=== PATIENT | male | born 1985 | race Caucasian/White ===

== ENCOUNTER 2022-06-16 07:58 | Emergency (ER) | payer OTHER, SELFPAY ==
--- NOTE | ~2022-06-16 | XR_ITS ---
XR shoulder LT min 2V DATE: 06/16/2022 08:22 INDICATION: Fall. Left shoulder pain. TECHNIQUE: 4 views COMPARISON: None FINDINGS: Normal alignment at the acromioclavicular and glenohumeral joints. No fracture or dislocati on, periosteal reaction or bone destruction or abnormal soft tissue calcification. IMPRESSION: Negative Reviewed, dictated and finalized at location B. SACTION PROCESSOR IMPRESSION: Negative
--- NOTE | ~2022-06-16 | XR_ITS ---
XR clavicle LT DATE: INDICATION: Fall. Left clavicle pain TECHNIQUE: AP and angled AP views of left clavicle COMPARISON: 06/16/2022 left shoulder FINDINGS: No fracture or dislocation, periosteal reaction or bone destruction of the left clavicle. N ormal alignment at the sternoclavicular, acromioclavicular and glenohumeral joints. IMPRESSION: Negative Reviewed, dictated and finalized at location B. RVISOR OF OPERATIONS IMPRESSION: Negative
[2022-06-16 08:06] VITALS: BP 154/107; PULSE 80; RESP 16; TEMP 36.7; O2SAT 100
--- NOTE | 2022-06-16 08:49 | ED_ITS ---
HPI - Extremity Injury (Upper) General Chief Complaint: Extremity Injury, Upper Stated Complaint: fell down stairs, pain to left shoulder Time Seen by Provider: 06/16/22 08:30 History of Present Illness HPI narrative: Pt fell down staris and landed on left shoulder. Pt complains of pain in left sholder and lateral neck but no t midline neck. Pt denies LOC or TAVERA or head injury. Pt able to abduct shoulder to 90 degrees but says he feels pops and cracks when he does. Pt denies other injury. Related Data Allergies Allergy/AdvReac Type Severity Reaction Status Date / Time No Known Allergies Allergy Unknown Verified 06/16/22 08:09 Review of Systems Review of Systems: All systems reviewed & are unremarkable except as noted in HPI and below Exam Const: General: healthy appearing Nutritional Appearance: well nourished Orientation/consciousness: patient oriented x3 Limitations: no limitations HENMT: Head: normal to inspection Eyes: Conjunctivae: conjunctivae normal EOM: EOMs intact bilaterally Neck: Neck: normal visual inspection Other: no midline pain Chest: Chest palpation & inspection: normal inspection of the chest Resp: Effort & Inspection: normal respiratory effort Auscultation: clear to auscultation bilaterally Cardio: Rate: regular rate Rhythm: regular rhythm GI: GI Palp: Yes Soft to palpation Back/Spine/Pelvis: Other: no midline pain to spine Skin: General skin exam: normal color Wounds: no wounds Neuro: General: patient oriented x3, moves all extremities and no focal motor deficits Speech: normal speech Extrem: Other: tender over mid and distal clavicle and ac joint on left without obvious deformity. tender over deltoids as well. Pt able to abduct left shoulder to 90 degrees without much difficulty. Psych: Mental Status: mental status grossly normal Affect: normal affect Attitude: cooperative Course Vital Signs Vital signs: Vital Signs Temperature 98.0 F 06/16/22 08:06 Pulse Rate 80 06/16/22 08:06 Respiratory Rate 16 06/16/22 08:06 Blood Pressure 154/107 H 06/16/22 08:06 Pulse Oximetry 100 06/16/22 08:06 Oxygen Delivery Room Air 06/16/22 08:06 Temperature 98.0 F 06/16/22 08:06 Pulse Rate 80 06/16/22 08:06 Respiratory Rate 16 06/16/22 08:06 Blood Pressure 154/107 H 06/16/22 08:06 Pulse Oximetry 100 06/16/22 08:06 Oxygen Delivery Room Air 06/16/22 08:06 Discharge Plan Discharge Clinical Impression: Sprain of left shoulder Patient Disposition: Home, Self-Care Condition: Stable Instructions: Antibiotic Form, Shoulder Sprain (ED) Prescriptions: New naproxen [Naprosyn] 500 mg tablet 500 mg PO BID Qty: 20 0RF cyclobenzaprine 10 mg tablet 10 mg PO TID Qty: 14 0RF Follow-up/Referrals: Randolph Carrion MD [Physician] - PHYSICIAN,EARTH SCIENCE PROFESSOR [Primary Care Provider] - Stand Alone Forms: Work/School Release IP
== END 2022-06-16 09:32 | disposition home or self-care (01) ==
PROVIDERS: Emergency Provider Emergency Medicine
DX: S43.402A Unspecified sprain of left shoulder joint, initial encounter (principal); W10.9XXA Fall (on) (from) unspecified stairs and steps, initial encounter
CPT/HCPCS: 73000; 73030; 99283; A4565

== ENCOUNTER 2022-10-03 00:28 | Day surgery (SDC) | payer OTHER, SELFPAY ==
[2022-09-22 15:19] VITALS: BMI 26.6
--- NOTE | 2022-09-22 15:30 | PC.NURSE ---
Report to the Outpatient Waiting Room, entrance under the green pavilion located off [facility], at 0600 on 10/03/22. Planned Procedure Time: 0730. Time changes happen often and if your time is changed the preop area will call you the afternoon before. - You and your visitor will be asked to self-screen and do not enter if you have any COVID symptoms. - Only one visitor is requested with a max of two and NO children visitors are allowed at this time. - The patient visitor may be requested to leave or wait in car when not with patient due to distancing restrictions. - A mask is optional within the hospital at this time. Patients may have clear liquids (water, carbonated beverages, clear teas, apple juice) until 3 hours prior to surgery with a maximum of 20 ounces. - No food from midnight until time of surgery Take the following medications with a SIP of water the morning of surgery: N/A DO NOT STOP ANY OF YOUR OTHER PRESCRIPTION MEDICATIONS PRIOR TO SURGERY ?EXCEPT THE FOLLOWING Medications to discontinue per physician ___N/A Date to take last dose_N/A Please no make-up, nail vietnamese, hairspray, perfume, deodorant, or body powder the day of surgery. No jewelry (including any body piercings) or valuables the day of surgery, leave them at home. Please take a shower or bath the night before, or the morning of, surgery with an antibacterial soap. Wear comfortable, loose fitting clothing. - Jewelry must be removed prior to entering the operating room. Rings and piercings that are not removed may be cut off. - The hospital will not accept responsibility for valuables. - Please leave all valuables, including medications, at home the day of surgery. If you are going home after surgery, a licensed truck driver heavy must drive you home. - NO public transportation without another adult if you receive anesthesia. - We recommend that an adult stay with you for 24 hours following discharge. - We also recommend that you do not drive, make important decision, drink alcoholic beverages, or take any drugs that were not prescribed by your health care provider for at least 24 hours after your discharge time. Follow any additional instructions given to you from your surgeon. If you or anyone in your household have experienced Covid symptoms in the past week, please notify your surgeon or the nurse liaison at the phone number below for possible testing. Telephone instructions given to patient and asked if any additional questions and then verbalized understanding. Patient advised to call surgeon office or pre surgery nurse liaison [phone] if any additional questions.
--- NOTE | 2022-09-26 15:57 | PM.IMHP ---
H&P: HPI History of Present Illness Date/Time: 09/26/22 15:57 Chief Complaint: the patient is a 37 year old male who sees Dr. Hess regarding his left shoulder. The patient is a chronic ongoing history of pain localized left shoulder worse with activity somewhat relieved by rest the pain radiates into the left upper arm from the shoulder has aching pain with almost any motion particularly with overhead motion or heavy repetitive activity. The patient does report a couple of injuries including falls. X-rays and MRI scans were done these show AC joint arthrosis no evidence of a full-thickness rotator cuff tendon tear. There is mild thickening and signal abnormality of the supraspinatus tendon anteriorly there is some thickening of the inferior glenohumeral ligament biceps labrum is intact. Long head of the biceps tendon is also intact and in the bicipital groove. Subacromial space is well maintained. The patient continues have significant aching pain and limitation of his daily activities. An injection into the AC joint and subacromial space did give him some temporary relief indicating that the pain is localized to these areas. At this point the patient is tired living with it he has discussed further treatment options in detail Dr. Hess he would now like to proceed with surgical intervention. Review of Systems Review of Systems: Ten point review of systems otherwise negative PMFSH Social History Social History Smoking status: Current every day smoker Tobacco type: smokeless tobacco Smokeless tobacco user: chewing tobacco Additional smoking assessment comments: SINCE LATE TEENS Alcohol intake: current Alcohol use details: ONE BEER RARELY Substance use: never Living arrangements: with family Spiritual care concerns: No Meds Home Medications and Allergies Home Medications Medication Instructions Recorded Confirmed Type No Home Medications 09/22/22 09/22/22 History Allergies Allergy/AdvReac Type Severity Reaction Status Date / Time No Known Allergies Allergy Unknown Verified 09/22/22 15:16 Exam Narrative: on exam the patient is noted to be well-developed well-nourished male no acute distress alert oriented x3. Normal mood and affect. He is 5 ft 7 in tall 170 lb with a BMI 26.6. Hearing and vision are intact. Respiratory is good no distress. Pulse regular rate rhythm. Abdomen benign. Extremities showed the patient's left shoulder to be painful with manipulation and range of motion he has some tenderness over the AC joint and a positive impingement sign rotator cuff strength testing is 5/5 but did reproduce significant pain and discomfort as well he has full active and passive motion no radiculopathy with neck range of motion. Skin is intact without rashes or lesions. Central nervous system within normal limits. 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 The patient has discussed risks benefits limitations and alternatives of surgery in great detail Dr. Hess he is now ready to proceed with left shoulder arthroscopy acromioplasty open distal clavicle excision possible rotator cuff tendon Edilma mint / repair proceed as indicated. The patient is scheduled to undergo surgery 10/03/2022 at [facility] with Dr. Hess. The patient voiced understanding agrees with above plan.
[2022-10-03] VITALS (9 sets, daily range): BP systolic 109–132; BP diastolic 64–96; PULSE 64–91; RESP 10–16; TEMP 36.1–36.6; O2SAT 94–100
--- NOTE | 2022-10-03 06:41 | WPDHPUPDATE1 ---
History and Physical Update Update Date/Time: 10/03/22 06:41 History and Physical has been reviewed, including an updated exam of the patient. There are NO changes in the patient's condition. Risks, benefits, and alternatives have been discussed and questions answered. Patient agrees to proceed with procedure. Discussed fact that not all of his pain is from his shoulder. He has cervical issues as well.
[2022-10-03] MEDS: ACETAMINOPHEN 500 MG TABLET 1000 MG PO (07:00)
[2022-10-03] MEDS: LACTATED RINGERS 1,000 ML 30 ML IV CONT ×2 (07:00→09:08)
[2022-10-03] MEDS: KETOROLAC 15 MG/ML VIAL (*BKC) IV PUSH (07:00)
--- NOTE | 2022-10-03 07:14 | P.PNAN_ITS ---
Anes - Initial Pre Proc Eval Procedure: Operation Date: 10/03/22 07:30 Proposed Procedures p Left Shoulder Arthroscopy, Acromioplasty, Open Distal Clavicle Excision, Rotator Cuff Repair, Proceed As Indicated - Laurent Hess MD Date/Time: 10/03/22 07:14 Surgeon: Laurent Hess MD Pre Op Diagnosis: rotator cuff tear left shoulder Patient Data Age: 37 Gender: M Height: 1.7 m Weight: 77.11 kg Allergies Allergy/AdvReac Type Severity Reaction Status Date / Time No Known Allergies Allergy Unknown Verified 09/22/22 15:16 Home Medications Medication Instructions Recorded Confirmed Type No Home Medications 09/22/22 09/22/22 History Patient hx anesthesia problems: none Family hx anesthesia problems: none Results Review: All pre-operative results and documents have been reviewed as part of the pre- operative evaluation. [facility] Social History Social History Smoking status: Current every day smoker Tobacco type: smokeless tobacco Smokeless tobacco user: chewing tobacco Additional smoking assessment comments: SINCE LATE TEENS Alcohol intake: current Alcohol use details: ONE BEER RARELY Substance use: never Living arrangements: with family Spiritual care concerns: No Anes - Eval Final PreProcedure Day of Procedure 10/03/22 07:14 Patient weight: overweight Heart: regular rate and rhythm Lungs: clear to auscultation Airway: Mallampati scale class II Neurological: alert and oriented Last oral intake: >/= 8 hours ASA classification: II Emergent: no Anesthetic plan: proceed Anesthesia type and monitoring: general ETT and standard monitoring Results Review: All pre-operative results and documents have been reviewed as part of the pre- operative evaluation. Informed Consent: The patient's anesthetic plan and its attendant risks and benefits were discussed with the patient/family/POA. Questions were solicited and answers provided to the satisfaction of the patient/family/POA.
[2022-10-03] MEDS: ceFAZolin 2 GM/D5W 50 ML 2 GM/50 ML BAG IVPB (07:38)
[2022-10-03] MEDS: LIDO 1%/EPINEPHRINE 1:100,000 20 ML VIAL 10 ML INFILTRATE (08:23)
--- NOTE | 2022-10-03 08:52 | P.OP_ITS ---
Procedure Note - Detailed Date of Procedure 10/03/22 Pre-op Diagnosis Chronic Impingement Acromial clavicular arthrosis Post-op Diagnosis Same Procedure Performed Arthrocopic acromioplasty, distal clavicle excision Surgeon Laurent Hess MD Anesthesia General Indications Chronic pain unresponsive to conservative treatment Description of Procedure Patient brought to the operative 7. A general anesthetic was administered placed in the beach chair position the left shoulder exposed.? After sterile prep and drape standard posterior and lateral portals were used for arthroscopy. The joint itself looked reasonably good, the biceps tendon was intact.? The stout bacromial space had an intense bursa, this was debrided with a shaver and acromioplasty performed arthroscopically.? He was quite tight initially. I then proceeded to open the shoulder. A longitudinal incision made from the AC joint distalward over the shoulder.? Dissection carried down to the fascia. The fascia overlying the acromioclavicular joint was split. The AC joint found and a distal clavicle excision performed removing 3 to 4 millimeters of bone.? The edges beveled.? The deltoid was then split from the tip of the acromion. The remainder of the bursa was debrided.? The rotator cuff had some fraying, but no tear. This was debrided.? The acromium rasped gently. At this point the deltoid was repaired to itself,the acromion and the trapezius #2 Ethibond. The skin was closed with 2-0 Vicryl and robby.? Sterile dressing applied patient tolerated well left the operating room satisfactory condition. Estimated Blood Loss 50 Drains No Packing No Pathology None sent Complications No immediate complications Condition Stable Disposition PACU
== END 2022-10-03 11:00 | disposition home or self-care (01) ==
PROVIDERS: Visit Provider Orthopaedic Surgery
PROC: (CPT 29805; principal; 2022-10-03 07:30)
DX: M75.42 Impingement syndrome of left shoulder (principal); M19.012 Primary osteoarthritis, left shoulder; F17.220 Nicotine dependence, chewing tobacco, uncomplicated
CPT/HCPCS: 29822; 23120; A4565; A9270; J0330; J0690; J1100; J1885; J2250; J2270; J2405; J2704; J3010; J7120

== ENCOUNTER 2022-11-05 09:37 | Day surgery (SDC) | payer OTHER, SELFPAY ==
[2022-11-05] VITALS (10 sets, daily range): BP systolic 119–162; BP diastolic 73–107; PULSE 72–111; RESP 10–20; TEMP 36.2–36.6; O2SAT 98–100
--- NOTE | ~2022-11-05 | CT_ITS ---
EXAMINATION: CT abdomen pelvis w con DATE: 11/05/2022 12:36 INDICATION: Epigastric pain TECHNIQUE: Computed tomography (CT) of the abdomen and pelvis was performed with 100 mL Omnipaque-350 intravenous contrast. Automated exposure control and iterative reconstruction technique were employe d. The dose-length product was 477.49 mGy-cm. COMPARISON: None FINDINGS: Mild dependent atelectasis in the bilateral lower lobes. Heart size is normal. No pericardial or pleu ral effusion. Small amount of pericholecystic edema at the gallbladder fossa between the nondilated g allbladder and the liver. There is a 2.6 cm rim calcified gallstone position at the neck of the gallb ladder. Liver, spleen, pancreas, bilateral adrenal glands and kidneys are normal. Bowels including th e appendix are normal. Bladder is normal. No free intraperitoneal gas or fluid. No pathologically enl arged abdominal or pelvic lymphadenopathy. Mild thoracolumbar dextrocurvature. IMPRESSION: 1. Gallstone at the neck the nondilated gallbladder with small amount pericholecystic fluid/edema whi ch raises suspicion for early acute cholecystitis. Reviewed, dictated and finalized at location A. IMPRESSION: 1. Gallstone at the neck the nondilated gallbladder with small amount perichole cystic fluid/edema which raises suspicion for early acute cholecystitis.
[2022-11-05] MEDS: ONDANSETRON INJ 4 MG/2 ML VIAL IV PUSH (10:51)
[2022-11-05] MEDS: MORPHINE SULFATE (*CRX) 4 MG/ML INJ IV PUSH (10:52)
[2022-11-05] MEDS: SODIUM CHLORIDE 0.9% IV 1,000 ML 999 ML IV CONT (10:53)
[2022-11-05 11:07] LABS: Basophils Absolute Auto 0.1 K/mm3 (0.0-0.1); Basophils Percent Auto 0.5 % (0.2-1.2); Eosinophils Absolute Auto 0.1 K/mm3 (0-0.3); Eosinophils Percent Auto 0.6 % (0-4.4); Hematocrit 48.2 % (42.0-52.0); Hemoglobin 17.2 g/dL (14.0-18.0); Immature Granulocyte Absolute 0.08 K/mm3 (0.00-0.031); Immature Granulocyte Percent A 0.5 % (0-0.5); Lymphocytes Absolute Auto 1.45 K/mm3 (0.9-3.2); Lymphocytes Percent Auto 9.7 % (18.3-44.2); Mean Corpuscular HGB Conc 35.7 g/dl (32-36); Mean Corpuscular Hemoglobin 29.9 pg (26-34); Mean Corpuscular Volume 83.7 fl (80-100); Mean Platelet Volume 10.1 fl (7.4-10.4); Monocytes Absolute Auto 0.7 K/mm3 (0.1-0.6); Monocytes Percent Auto 4.4 % (2.6-8.5); Neutrophils Absolute Auto 12.5 K/mm3 (1.3-6.7); Neutrophils Percent Auto 84.3 % (45.5-73.1); Platelet Count Result 315 k/mm3 (150-375); Red Blood Count 5.76 M/mm3 (4.6-6.20); Red Cell Distribution Width 12.7 % (11.5-14.5); White Blood Count 14.9 K/mm3 (4.5-10.0)
[2022-11-05 11:13] LABS: Alanine Aminotransferase 70 U/L (6-50); Albumin Level 5.2 g/dL (3.5-5.1); Alkaline Phosphatase 83 U/L (38-126); Anion Gap 7 mmol/L (8-16); Aspartate Amino Transferase 42 U/L (17-59); Bilirubin,Total 0.6 mg/dL (0.2-1.3); Blood Urea Nitrogen 13 mg/dL (9-20); Calcium 10.5 mg/dL (8.4-10.2); Carbon Dioxide 30 mmol/L (22-30); Chloride 100 mmol/L (98-107); Estimated CRCL calculation 83 ml/min; Estimated Glomerular Filt Rate > 60; Glucose 125 mg/dL (65-110); Lipase 37 U/L (23-300); Potassium 5.2 mmol/L (3.4-5.0); Sodium 137 mmol/L (137-145)
[2022-11-05 11:25] LABS: Appearance Urine Clear (Clear); Bacteria Urine None Seen /hpf; Bilirubin Urine Negative (Negative); Blood Urine Negative (Negative); Color Urine Yellow (Yellow); Glucose Urine UA Negative (Negative); Ketones Urine Negative (Negative); Leukocyte Esterase Ur Negative LEU/UL (Negative); Nitrate Urine Negative (Negative); Non Pathogenic Casts 0-2; Protein Urine Trace mg/dL (Negative); RBC Urine 0-2 /hpf (0-2); Specific Grav Ur 1.021 (1.001-1.035); Squamous Epithelial Cell Urine None seen /hpf (Few); Urobilinogen Urine 0.2 mg/dL (<2.0); WBC Urine 0-5 /hpf
[2022-11-05 11:31] LABS: Add Urine Microscopic? YES
[2022-11-05] MEDS: HYDROmorphone HCL INJ (*CRX) 1 MG/ML SYR 0.5 MG IV PUSH (12:49)
--- NOTE | 2022-11-05 12:50 | ED.NAVMDI ---
HPI - Nausea/Vomiting/Diarrhea General Chief complaint: Nausea/Vomiting/Diarrhea Stated complaint: abd pain Time Seen by Provider: 11/05/22 10:11 History of Present Illness HPI Narrative: Patient is a 37-year-old male who presents ER with epigastric pain. Sharp and sudden onset at 1 AM. Some nausea without vomiting. No fevers or chills or sweats. No diarrhea. No alleviating factors. Cannot identify aggravating factors. Related Data Home Medications Medication Instructions Recorded Confirmed No Home Medications 11/05/22 11/05/22 Allergies Allergy/AdvReac Type Severity Reaction Status Date / Time No Known Allergies Allergy Unknown Verified 11/05/22 10:18 Review of Systems Review of Systems: All systems reviewed & are unremarkable except as noted in HPI and below Constitutional: Constitutional: Denies chills, Denies fatigue and Denies fever(s) ENT: Denies nasal congestion and Denies sore throat Cardiovascular: Cardiovascular: Denies chest pain and Denies radiating jaw, neck or arm pain Respiratory: Respiratory: Denies cough and Denies dyspnea Gastrointestinal: Gastrointestinal: Reports abdominal pain, Denies diarrhea, Reports nausea and Denies vomiting Genitourinary: Genitourinary: Denies dysuria and Denies urinary frequency PMFSH Past Medical History Medical History (Updated 11/05/22 @ 13:38 by RUDY Salgdao) No pertinent past medical history Surgical History Surgical History (Updated 11/05/22 @ 13:34 by RUDY Salgado) History of shoulder surgery History of surgery on lower extremity Social History Social History Smoking status: Never smoker Tobacco type: smokeless tobacco Smokeless tobacco user: chewing tobacco Additional smoking assessment comments: SINCE LATE TEENS Alcohol intake: current Alcohol use details: ONE BEER RARELY Substance use: never Living arrangements: with family Spiritual care concerns: No Exam Narrative: GENERAL: Well-appearing, well-nourished, and in no acute distress. HEAD: Normocephalic, atraumatic. ENT: Mucous membranes moist. NECK: Supple. CHEST: Clear to auscultation. No respiratory distress. HEART: Regular rate and rhythm. Normal peripheral pulses. ABDOMEN: Soft, tender palpation epigastrium and right upper quadrant nondistended. EXTREMITIES: Normal range of motion. No edema. SKIN: Warm, dry, no rash. NEURO: Alert and oriented x3. PSYCH: Normal mood and affect. Course Course Emergency Course: Patient still with persistent pain after morphine. Discussed with general surgery who will take him to the OR for cholecystectomy. IV antibiotics ordered. Vital Signs Vital signs: Vital Signs Temperature 97.4 F L 11/05/22 09:51 Pulse Rate 72 11/05/22 09:51 Respiratory Rate 16 11/05/22 09:51 Blood Pressure 162/100 H 11/05/22 09:51 Pulse Oximetry 100 11/05/22 09:51 Temperature 97.4 F L 11/05/22 09:51 Pulse Rate 79 11/05/22 10:30 Respiratory Rate 16 11/05/22 10:30 Blood Pressure 151/87 H 11/05/22 10:30 Pulse Oximetry 99 11/05/22 10:30 MDM - Nausea/Vomiting/Diarrhea Lab Data 11/05/22 10:51 11/05/22 10:51 Labs: Lab Results 11/05/22 11/05/22 Range/Units 10:51 11:11 WBC 14.9 H (4.5-10.0) K/mm3 RBC 5.76 (4.6-6.20) M/mm3 Hgb 17.2 (14.0-18.0) g/dL Hct 48.2 (42.0-52.0) % MCV 83.7 (80-100) fl MCH 29.9 (26-34) pg MCHC 35.7 (32-36) g/dl RDW 12.7 (11.5-14.5) % Plt Count 315 (150-375) k/mm3 MPV 10.1 (7.4-10.4) fl Immature Gran % (Auto) 0.5 (0-0.5) % Neut % (Auto) 84.3 H (45.5-73.1) % Lymph % (Auto) 9.7 L (18.3-44.2) % Douglas % (Auto) 4.4 (2.6-8.5) % Eos % (Auto) 0.6 (0-4.4) % Baso % (Auto) 0.5 (0.2-1.2) % Lymph # (Auto) 1.45 (0.9-3.2) K/mm3 Douglas # (Auto) 0.7 H (0.1-0.6) K/mm3 Eos # (Auto) 0.1 (0-0.3) K/mm3 Baso # (Aut
[2022-11-05] MEDS: PIPERACILLN/TAZ 3.375GM/NS50ML 3.375 GM/50 ML BAG IVPB (13:26)
--- NOTE | 2022-11-05 13:29 | PM.IMHP ---
H&P: HPI History of Present Illness Date/Time: 11/05/22 13:29 Chief Complaint: Epigastric abdominal pain Narrative: This is a 37-year-old man who presented to the ER today with complaints of epigastric abdominal pain starting early this morning. He reports eating rotisserie chicken and macaroni salad for dinner. He went to bed feeling in his normal state of health and woke up with a sudden onset of pain at 1:00 am this morning. He tried taking Tums and Pepto Bismol without relief. He was unable to get comfortable and pain persisted for the next few hours. He developed nausea and had one episode of vomiting. His pain progressively worsened and he presented to the ER for evaluation. Labs were significant for a WBC count of 14,900. LFTs essentially normal. CT scan abdomen and pelvis showed a 2.6 cm gallstone at the neck of the gallbladder with small amount of pericholecystic fluid raising the concern for early acute cholecystitis. Our service was consulted by the ED physician for surgical evaluation. He denies having this pain in the past. He has received IV Dilaudid and Morphine in the ER with some relief, but still having epigastric pain. He additionally had surgery on his right shoulder about [address] Hess. Review of Systems Review of Systems: All systems reviewed & are unremarkable except as noted in HPI and below Constitutional: Constitutional: Reports no additional constitutional complaints, Denies chills, Denies fatigue, Denies fever(s) and Denies poor appetite Eyes: Eyes: Reports no additional eye complaints ENT: Reports system reviewed and no additional complaints, except as documented and Denies dizziness Cardiovascular: Cardiovascular: Reports no additional cardiovascular complaints, Denies chest pain and Denies leg edema Respiratory: Respiratory: Reports no additional respiratory complaints, Denies cough and Denies dyspnea Gastrointestinal: Gastrointestinal: Reports as per HPI, Reports no additional gastrointestinal complaints, Reports abdominal pain, Denies melena, Denies bloating, Denies hematochezia, Denies constipation, Reports diarrhea (one episode this morning), Reports nausea and Reports vomiting Genitourinary: Genitourinary: Reports no additional male genitourinary complaints and Denies dysuria Musculoskeletal: Musculoskeletal: Reports no additional musculoskeletal complaints, Denies abnormal gait and Denies joint swelling Comments: Recent arthroscopic acromioplasty, distal clavicle excision by Dr. Hess on 10/03/22. Integumentary/Breasts: Skin/Breast: Reports system reviewed and no additional complaints, except as docu Neurologic: Reports system reviewed and no additional complaints, except as documented, Denies headache(s), Denies focal weakness, Denies numbness and Denies tingling PMFSH Past Medical History Medical History (Updated 11/05/22 @ 13:38 by RUDY Salgado) No pertinent past medical history Surgical History Surgical History History of shoulder surgery History of surgery on lower extremity Social History Social History Smoking status: Never smoker Tobacco type: smokeless tobacco Smokeless tobacco user: chewing tobacco Additional smoking assessment comments: SINCE LATE TEENS Alcohol intake: current Alcohol use details: ONE BEER RARELY Substance use: never Living arrangements: with family Spiritual care concerns: No Meds Home Medications and Allergies Home Medications Medication Instructions Recorded Confirmed Type No Home Medications 11/05/22 11/05/22 History Allergies Allergy/AdvReac Type Severity Reaction Status Date / Time No Known Allergies Allergy Unknown Verified 11/05/22 10:18 Vital Signs Vital Signs - 24 hr 11/05/22 09:51 11/05/22 10:30 Temperature 97.4 F L Pulse Rate 72 79 Respiratory Rate 16 16 Bloo
--- NOTE | 2022-11-05 13:46 | WPDANESEPPF ---
Anes - Initial Pre Proc Eval Procedure: Operation Date: 11/05/22 15:00 Proposed Procedures p Laparoscopic Cholecystectomy - Laurent Sanchez DO Date/Time: 11/05/22 13:46 Pre Op Diagnosis: abd pain Patient Data Age: 37 Gender: M Height: 1.7 m Weight: 83 kg Last Vital Signs Temp 36.3 C L 11/05/22 09:51 Pulse 75 11/05/22 13:28 Resp 16 11/05/22 13:28 BP 144/99 H 11/05/22 13:28 Pulse Ox 99 11/05/22 13:28 Allergies Allergy/AdvReac Type Severity Reaction Status Date / Time No Known Allergies Allergy Unknown Verified 11/05/22 10:18 Home Medications Medication Instructions Recorded Confirmed Type No Home Medications 11/05/22 11/05/22 History Laboratory Tests 11/05/22 11/05/22 10:51 11:11 WBC 14.9 H K/mm3 (4.5-10.0) RBC 5.76 M/mm3 (4.6-6.20) Hgb 17.2 g/dL (14.0-18.0) Hct 48.2 % (42.0-52.0) MCV 83.7 fl (80-100) MCH 29.9 pg (26-34) MCHC 35.7 g/dl (32-36) RDW 12.7 % (11.5-14.5) Plt Count 315 k/mm3 (150-375) MPV 10.1 fl (7.4-10.4) Immature Gran % (Auto) 0.5 % (0-0.5) Neut % (Auto) 84.3 H % (45.5-73.1) Lymph % (Auto) 9.7 L % (18.3-44.2) [place] % (Auto) 4.4 % (2.6-8.5) Eos % (Auto) 0.6 % (0-4.4) Baso % (Auto) 0.5 % (0.2-1.2) Lymph # (Auto) 1.45 K/mm3 (0.9-3.2) [place] # (Auto) 0.7 H K/mm3 (0.1-0.6) Eos # (Auto) 0.1 K/mm3 (0-0.3) Baso # (Auto) 0.1 K/mm3 (0.0-0.1) Abs Immat Gran (auto) 0.08 H K/mm3 (0.00-0.031) Absolute Neuts (auto) 12.5 H K/mm3 (1.3-6.7) Absolute Nucleated RBC 0.0 K/mm3 (0.0-0.012) Nucleated RBC % 0.0 % (0.0-0.2) Sodium 137 mmol/L (137-145) Potassium 5.2 H mmol/L (3.4-5.0) Chloride 100 mmol/L (98-107) Carbon Dioxide 30 mmol/L (22-30) Anion Gap 7 L mmol/L (8-16) BUN 13 mg/dL (9-20) Creatinine 1.00 mg/dL (0.7-1.3) Estim Creat Clear Calc 83 ml/min Estimated GFR > 60 (59 - ) Glucose 125 H mg/dL (65-110) Calcium 10.5 H mg/dL (8.4-10.2) Total Bilirubin 0.6 mg/dL (0.2-1.3) AST 42 U/L (17-59) ALT 70 H U/L (6-50) Alkaline Phosphatase 83 U/L (38-126) Total Protein 9.0 H g/dL (6.3-8.2) Albumin 5.2 H g/dL (3.5-5.1) Lipase 37 U/L (23-300) Urine Color Yellow (Yellow) Urine Appearance Clear (Clear) Urine pH 5.0 (5.0-9.0) Ur Specific [place] 1.021 (1.001-1.035) Urine Protein Trace mg/dL (Negative) Urine Glucose (UA) Negative mg/dL (Negative) Urine Ketones Negative mg/dL (Negative) Ur Blood (Man) Negative (Negative) Urine Nitrate Negative (Negative) Urine Bilirubin Negative (Negative) Urine Urobilinogen 0.2 mg/dL (<2.0) Leukocyte Esterase Rfl Negative MANUEL/UL (Negative) Urine RBC 0-2 /hpf (0-2) Urine WBC 0-5 /hpf Ur Squamous Epith Cells None seen /hpf (Few) Urine Bacteria None seen /hpf Urine Casts 0-2 Patient hx anesthesia problems: none Family hx anesthesia problems: none Results Review: All pre-operative results and documents have been reviewed as part of the pre-operative evaluation. [facility] Past Medical History Medical History No pertinent past medical history Surgical History Surgical History History of shoulder surgery History of surgery on lower extremity Social History Social History Smoking status: Never smoker Tobacco type: smokeless tobacco Smokeless tobacco user: chewing tobacco Additional smoking assessment comments: SINCE LATE TEENS Alcohol intake: current
[2022-11-05] MEDS: LACTATED RINGERS 1,000 ML 30 ML IV CONT ×2 (14:00→15:15)
--- NOTE | 2022-11-05 14:06 | WPDHPUPDATE1 ---
History and Physical Update Update Date/Time: 11/05/22 14:06 History and Physical has been reviewed, including an updated exam of the patient. There are NO changes in the patient's condition. Risks, benefits, and alternatives have been discussed and questions answered. Patient agrees to proceed with procedure.
[2022-11-05] MEDS: BUPIVACAINE/EPINEPHRINE 0.25% 50 ML VIAL 30 ML INFILTRATE (14:28)
--- NOTE | 2022-11-05 15:04 | W.PM.PROC2 ---
Procedure Note - Detailed Date of Procedure 11/05/22 Pre-op Diagnosis Acute calculous cholecystitis Post-op Diagnosis Same Procedure Performed Laparoscopic Cholecystectomy Surgeon Laurent Sanchez, DO Anesthesia General and Local (0.5% bupivacaine) Indications This is a 37-year-old man who presented to the emergency department with epigastric abdominal pain that started overnight. He was found to have an elevated white blood count and CT showed evidence of acute calculous cholecystitis. Discussions were made with the patient about treatment options and decision was made to proceed with urgent laparoscopic cholecystectomy, possible open. Findings Laparoscopic cholecystectomy was performed. The gallbladder had evidence of hydrops with a distended gallbladder and clear liquid bile within the lumen. The gallbladder was also thickened and there was hyperemia. The liver bed also tore at the edge of the gallbladder very easily with just gentle traction. There was a large gallstone within the neck of the gallbladder. The cystic duct appeared normal in size. No other significant abnormalities were noted. The gallbladder was removed and sent to lab for pathology. Description of Procedure Procedure as well as risks, benefits, and alternatives were discussed with patient. Written consent was obtained and placed in chart prior to procedure. The patient was brought back to surgical suite. Patient was placed in supine position on operating table. Time-out was done to confirm patient and procedure. Patient was then intubated by the anesthesia department. Abdomen was prepped and draped in sterile fashion using chlorhexidine prep. 0.5% bupivacaine with epinephrine was infiltrated at each site of incision. A 5 millimeter incision was made near the umbilicus, and a 5 millimeter Optiview trocar was advanced through the abdominal layers under direct visualization. Once inside the abdominal cavity, carbon dioxide was insufflated to create a pneumoperitoneum. The camera was inserted and the abdomen was inspected. No immediate abnormalities were identified. The patient was placed in reverse Trendelenburg position and rotated slightly to the left. An 11 millimeter incision was made in the subxiphoid region, and an 11 millimeter trocar was inserted under direct visualization. Two 5 millimeter incisions were made in the right upper quadrant, and two 5 millimeter trocars were inserted under direct visualization. The gallbladder was identified and grasped at the fundus and retracted superiorly. It was then grasped at the infundibulum retracted laterally. Careful dissection around the neck of the gallbladder was performed using blunt dissection with a [place] grasper and hook electrocautery. The cystic duct was identified, and a window was created behind it. The cystic artery was also identified and a window was created behind it. The critical view of safety was identified, visualizing the cystic duct running directly into the neck of the gallbladder, and the cystic artery running directly into the wall of the gallbladder. A 5 millimeter clip web pressman was then used to place 2 clips proximally and 1 clip distally on both the cystic duct and cystic artery. They were then both transected using endoscopic scissors. Once safely away from the tabby hepatitis, the gallbladder was dissected free from the liver bed using hook electrocautery. Hemostasis was achieved along the way. The gallbladder was removed completely and then removed through the subxiphoid port. The liver bed was then inspected. Hemostasis appeared adequate, and our clips appeared secure. The area was gently irrigated with sterile saline. No other abnormalities were seen. The patient was flattened out in bed, and 1 final inspection was made around the abdominal cavity. The subxiphoid port was removed, and a Juan A Brody cone was used to approximate the fascia with an 0-Vicryl simple interrupted suture. The
== END 2022-11-05 16:42 | disposition home or self-care (01) ==
LOC: ANHED 13:38 → ANHSURGERY 14:20
PROVIDERS: Emergency Provider Emergency Medicine; Visit Provider Surgery
PROC: 0FT44ZZ Resection of Gallbladder, Percutaneous Endoscopic Approach (ICD-10-PCS; CPT 47562; principal; 2022-11-05 15:00)
DX: K80.00 Calculus of gallbladder with acute cholecystitis without obstruction (principal); F17.220 Nicotine dependence, chewing tobacco, uncomplicated
CPT/HCPCS: 47562; 36415; 74177; 80053; 81001; 83690; 85025; 88304; 96361; 96365; 96375; 99285; A9270; J1100; J1170; J2250; J2270; J2405; J2543; J2704; J2710; J3010; J7030; J7120; Q9967

== ENCOUNTER 2023-10-07 07:58 | Emergency (ER) | payer OTHER, SELFPAY ==
--- NOTE | ~2023-10-07 | CT_ITS ---
EXAMINATION: CT abdomen pelvis w con DATE: 10/07/2023 08:43 INDICATION: Right lower quadrant abdominal pain. TECHNIQUE: Computed tomography (CT) of the abdomen and pelvis was performed with 100 mL Omnipaque 350 intravenous contrast. Automated exposure control and iterative reconstruction technique were employe d. The dose-length product was 442.58 mGy-cm. COMPARISON: CT abdomen and pelvis 11/05/2022 FINDINGS: The visualized portions of the lung bases demonstrate mild atelectasis. No pleural effusion . The heart size is normal. No pericardial effusion. The liver and spleen are normal. There are stewart es of cholecystectomy. The pancreas, adrenal glands, and left kidney are normal. There is a 4 mm cyst in right kidney. There is a left inguinal hernia containing fat. There are no dilated loops of bowel . The appendix is normal. There are no pathologically enlarged lymph nodes. There is no free intraper itoneal fluid. There is internal fixation of right femur. There is mild thoracic and lumbar spondylos is. IMPRESSION: 1. No etiology for the patient's symptoms. Reviewed, dictated and finalized at location A.
[2023-10-07 08:01] VITALS: BP 152/95; PULSE 90; RESP 16; TEMP 36.6; O2SAT 99
--- NOTE | 2023-10-07 08:19 | ED.ABDPAIN ---
HPI - Abdominal Pain General Chief Complaint: Abdominal Pain Stated Complaint: lower abd pain Time Seen by Provider: 10/07/23 08:14 History of Present Illness HPI narrative: Pt presents with rlq this morning. Pt says he had a similar episode a month ago which resolved. Pt denies vomiting or diarrhea or constipation. Pt has had a cholecystostomy but still has his appendix. Pt denies urinary symptoms. Related Data Allergies Allergy/AdvReac Type Severity Reaction Status Date / Time No Known Allergies Allergy Unknown Verified 11/17/22 11:00 Review of Systems Review of Systems: All systems reviewed & are unremarkable except as noted in HPI and below PMFSH Past Medical History Medical History (Updated 10/07/23 @ 09:10 by Fara Holt III, DO) No pertinent past medical history Surgical History Surgical History (Updated 11/17/22 @ 10:55 by Faith Lakhani) History of shoulder surgery History of surgery on lower extremity S/P cholecystectomy s/p lap brock 11/05/22 Social History Social History Smoking status: Never smoker Tobacco type: smokeless tobacco Smokeless tobacco user: chewing tobacco Additional smoking assessment comments: SINCE LATE TEENS Alcohol intake: current Alcohol use details: ONE BEER RARELY Substance use: never Living arrangements: with family Spiritual care concerns: No Exam Const: General: healthy appearing and no acute distress Nutritional Appearance: well nourished Orientation/consciousness: patient oriented x3 Limitations: no limitations Resp: Effort & Inspection: normal respiratory effort Auscultation: clear to auscultation bilaterally Cardio: Rate: regular rate Rhythm: regular rhythm GI: GI Palp: Yes Soft to palpation and Yes Tenderness to palpation present (GI) (rlq at [facility] no g/r/o) Auscultation: normal bowel sounds Back/Spine/Pelvis: Back: no CVA tenderness Skin: General skin exam: normal color Rashes: no rashes Wounds: no wounds Neuro: General: patient oriented x3, moves all extremities, no meningeal signs and no focal motor deficits Speech: normal speech Extrem: General: normal to inspection and no clubbing, cyanosis or edema Psych: Mental Status: mental status grossly normal Affect: normal affect Attitude: cooperative Course Vital Signs Vital signs: Vital Signs Temperature 98 F 10/07/23 08:01 Pulse Rate 90 03/27/24 08:01 Respiratory Rate 16 10/07/23 08:01 Blood Pressure 152/95 H 10/07/23 08:01 Pulse Oximetry 99 10/07/23 08:01 Temperature 98 F 10/07/23 08:01 Pulse Rate 80 10/07/23 09:29 Respiratory Rate 16 10/07/23 09:29 Blood Pressure 132/85 10/07/23 09:29 Pulse Oximetry 99 10/07/23 09:29 MDM - Abdominal Pain MDM Narrative Medical decision making narrative: Pt present with rlq pain ddx partial listed below. will need CT to rule out appendicitis and routine labs and ua. Pt does not want pain meds at this time. labs and CT nl. Pt stable. Will go home on pain bentyl. Differential Diagnosis Differential diagnosis: Likely abdominal pain, acute appendicitis, calculus of kidney, constipation, diverticulitis and small bowel obstruction Lab Data 10/07/23 08:12 10/07/23 08:39 Labs: Lab Results 10/07/23 10/07/23 10/07/23 Range/Units 08:12 08:26 08:39 WBC 6.9 (4.5-10.0) K/mm3 RBC 5.12 (4.6-6.20) M/mm3 Hgb 15.2 (14.0-18.0) g/dL Hct 43.5 (42.0-52.0) % MCV 85.0 (80-100) fl MCH 29.7 (26-34) pg MCHC 34.9 (32-36) g/dl RDW 12.6 (11.5-14.5) % Plt Count 274 (150-375) k/mm3 MPV 10.2 (7.4-10.4) fl Immature Gran % (Auto) 0.3 (0-0.5) % Neut % (Auto) 58.8 (45.5-73.1) % Lymph % (Auto) 28.6 (18.3-44.2) % [place] % (Auto) 7.8 (2.6-8.5) % Eos % (Auto) 3.6 (0-4.4) % Baso % (Auto) 0.9 (0.2-1.2) % Lymph # (Auto) 1.97 (0.9-3.2) K/mm3
[2023-10-07 08:40] LABS: Estimated CRCL calculation 82 ml/min; Estimated Glomerular Filt Rate > 60
[2023-10-07 08:40] LABS: Alanine Aminotransferase 40 U/L (6-50); Albumin Level 4.4 g/dL (3.5-5.1); Alkaline Phosphatase 59 U/L (38-126); Anion Gap 7 mmol/L (4-12); Aspartate Amino Transferase 26 U/L (17-59); Bilirubin,Total 0.7 mg/dL (0.2-1.3); Blood Urea Nitrogen 11 mg/dL (9-20); Calcium 9.1 mg/dL (8.4-10.2); Carbon Dioxide 26 mmol/L (22-30); Chloride 105 mmol/L (98-107); Estimated CRCL calculation 82 ml/min; Estimated Glomerular Filt Rate > 60; Glucose 125 mg/dL (65-110); Lipase 45 U/L (23-300); Potassium 3.6 mmol/L (3.4-5.0); Sodium 138 mmol/L (137-145)
[2023-10-07 08:44] LABS: Appearance Urine Clear (Clear); Color Urine Yellow (Yellow)
[2023-10-07 08:45] LABS: Basophils Absolute Auto 0.1 K/mm3 (0.0-0.1); Basophils Percent Auto 0.9 % (0.2-1.2); Eosinophils Absolute Auto 0.3 K/mm3 (0-0.3); Eosinophils Percent Auto 3.6 % (0-4.4); Hematocrit 43.5 % (42.0-52.0); Hemoglobin 15.2 g/dL (14.0-18.0); Immature Granulocyte Absolute 0.02 K/mm3 (0.00-0.031); Immature Granulocyte Percent A 0.3 % (0-0.5); Lymphocytes Absolute Auto 1.97 K/mm3 (0.9-3.2); Lymphocytes Percent Auto 28.6 % (18.3-44.2); Mean Corpuscular HGB Conc 34.9 g/dl (32-36); Mean Corpuscular Hemoglobin 29.7 pg (26-34); Mean Platelet Volume 10.2 fl (7.4-10.4); Monocytes Absolute Auto 0.5 K/mm3 (0.1-0.6); Monocytes Percent Auto 7.8 % (2.6-8.5); Neutrophils Percent Auto 58.8 % (45.5-73.1); Platelet Count Result 274 k/mm3 (150-375); Red Blood Count 5.12 M/mm3 (4.6-6.20); Red Cell Distribution Width 12.6 % (11.5-14.5); White Blood Count 6.9 K/mm3 (4.5-10.0)
[2023-10-07 08:45] LABS: Bilirubin Urine Negative (Negative); Blood Urine Trace-intact (Negative); Glucose Urine UA Negative (Negative); Ketones Urine Trace (Negative); Leukocyte Esterase Ur Negative LEU/UL (Negative); Nitrate Urine Negative (Negative); Protein Urine Negative (Negative); Urobilinogen Urine 0.2 mg/dL (0.2-1.0); pH Urine 5.5 (5.0-8.0)
[2023-10-07 08:48] LABS: Bacteria Urine None Seen /hpf; Non Pathogenic Casts 0-2; RBC Urine 0-2 /hpf (0-2); Squamous Epithelial Cell Urine None Seen /hpf (Few); WBC Urine 0-5 /hpf (0-3)
[2023-10-07 08:55] LABS: Add Urine Microscopic? YES
[2023-10-07 09:29] VITALS: BP 132/85; PULSE 80; RESP 16; O2SAT 99
== END 2023-10-07 09:30 | disposition home or self-care (01) ==
PROVIDERS: Emergency Provider Emergency Medicine
DX: R10.31 Right lower quadrant pain (principal); Z90.49 Acquired absence of other specified parts of digestive tract; F17.220 Nicotine dependence, chewing tobacco, uncomplicated
CPT/HCPCS: 36415; 74177; 80053; 81001; 83690; 85025; 99284; Q9967

== ENCOUNTER 2023-12-14 11:26 | Emergency (ER) | payer OTHER, SELFPAY ==
[2023-12-14] VITALS (19 sets, daily range): BP systolic 121–154; BP diastolic 79–95; PULSE 52–91; RESP 13–19; TEMP 36.6; O2SAT 95–99
--- NOTE | ~2023-12-14 | XR_ITS ---
EXAMINATION: XR chest 2V DATE: 12/14/2023 12:02 INDICATION: Chest tightness. Shortness of breath. TECHNIQUE: Frontal and lateral views of the chest were obtained. COMPARISON: Chest 2 views 07/30/2018, CT abdomen and pelvis 10/07/2023 FINDINGS: There is no pneumonia, pleural effusion, or pneumothorax. The heart size is normal. Surgica l clips in the right upper quadrant are likely from cholecystectomy. IMPRESSION: 1. No acute cardiopulmonary disease. Reviewed, dictated and finalized at location A.
--- NOTE | 2023-12-14 11:26 | ECG_ITS ---
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 Measurements Intervals [place] Rate: 85 P: 52 AR: 158 QRS: 13 QRSD: 98 T: 42 QT: 320 QTc: 382 Interpretive Statements SINUS RHYTHM NORMAL ECG No previous ECG available for comparison Electronically Signed On 12-14-2023 14:53:55 CDT by Nolberto Dunn M.D.
[2023-12-14 11:57] LABS: Basophils Absolute Auto 0.1 K/mm3 (0.0-0.1); Basophils Percent Auto 0.7 % (0.2-1.2); Eosinophils Absolute Auto 0.4 K/mm3 (0-0.3); Eosinophils Percent Auto 3.6 % (0-4.4); Hematocrit 45.2 % (42.0-52.0); Immature Granulocyte Absolute 0.03 K/mm3 (0.00-0.031); Immature Granulocyte Percent A 0.3 % (0-0.5); Lymphocytes Absolute Auto 2.22 K/mm3 (0.9-3.2); Lymphocytes Percent Auto 21.3 % (18.3-44.2); Mean Corpuscular HGB Conc 35.4 g/dl (32-36); Mean Corpuscular Hemoglobin 29.8 pg (26-34); Mean Corpuscular Volume 84.2 fl (80-100); Mean Platelet Volume 9.9 fl (7.4-10.4); Monocytes Absolute Auto 0.6 K/mm3 (0.1-0.6); Monocytes Percent Auto 5.6 % (2.6-8.5); Neutrophils Absolute Auto 7.1 K/mm3 (1.3-6.7); Neutrophils Percent Auto 68.5 % (45.5-73.1); Platelet Count Result 309 k/mm3 (150-375); Red Blood Count 5.37 M/mm3 (4.6-6.20); Red Cell Distribution Width 12.5 % (11.5-14.5); White Blood Count 10.4 K/mm3 (4.5-10.0)
[2023-12-14 12:07] LABS: Prothrombin Time 13.3 Seconds (11.1-14.7)
[2023-12-14 12:08] LABS: Alanine Aminotransferase 32 U/L (6-50); Albumin Level 4.8 g/dL (3.5-5.1); Alkaline Phosphatase 67 U/L (38-126); Anion Gap 10 mmol/L (4-12); Aspartate Amino Transferase 27 U/L (17-59); Bilirubin,Total 0.6 mg/dL (0.2-1.3); Blood Urea Nitrogen 9 mg/dL (9-20); Calcium 9.4 mg/dL (8.4-10.2); Carbon Dioxide 23 mmol/L (22-30); Chloride 106 mmol/L (98-107); Estimated CRCL calculation 82 ml/min; Estimated Glomerular Filt Rate > 60; Glucose 99 mg/dL (65-110); Lipase 63 U/L (23-300); Partial Thromboplastin Time 27.2 Seconds (22.3-36.8); Potassium 3.9 mmol/L (3.4-5.0); Sodium 139 mmol/L (137-145)
[2023-12-14 12:19] LABS: Troponin I < 0.012 ng/mL (0.000-0.034)
[2023-12-14] MEDS: KETOROLAC 30 MG/ML VIAL (*BKC) IM (14:17)
[2023-12-14] MEDS: CYCLOBENZAPRINE HCL 10 MG TABLET PO (14:17)
[2023-12-14] MEDS: ASPIRIN 81 MG CHEWABLE TABLET 324 MG PO (14:17)
--- NOTE | 2023-12-14 14:30 | ECG_ITS ---
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 Measurements Intervals [place] Rate: 54 P: 40 [place]: 150 QRS: 4 QRSD: 105 T: 30 QT: 408 QTc: 388 Interpretive Statements SINUS BRADYCARDIA WITH OCCASIONAL ECTOPIC PREMATURE COMPLEXES MODERATE VOLTAGE CRITERIA FOR LVH, CONSIDER NORMAL VARIANT [MEETS CRITERIA IN ONE OF: R(aVL), S(V1), R(V5), R(V5/V6)+S(V1)] ABNORMAL ECG Compared to ECG 12/14/2023 11:32:03 HEART RATE IS REDUCED NO OTHER SIGNIFICANT CHANGE Electronically Signed On 12-14-2023 15:01:59 CDT by Nolberto Dunn M.D.
[2023-12-14 15:04] LABS: Troponin I < 0.012 ng/mL (0.000-0.034)
--- NOTE | 2023-12-14 15:26 | ED.CHESTPAIN ---
HPI - Chest Pain General Chief Complaint: Chest Pain Stated Complaint: CP, nausea Time Seen by Provider: 12/14/23 13:20 Source: old records reviewed History of Present Illness HPI narrative: Pt presents with anterior chest pain for about 2 hrs. Pt says it is constant but waxes and wanes in severity. Pt says it was worse when he walked. Pt has no pmhx and n FH of CAD. Pt no smoker. MD complaint: chest pain Onset (ago): hour(s) Timing of current episode: constant Pain location: substernal and left chest Pain radiation: none Severity: mild Quality: sharp Relieving factors: nothing Exacerbating factors: exertion Treatment prior to arrival: none Related Data Allergies Allergy/AdvReac Type Severity Reaction Status Date / Time No Known Allergies Allergy Unknown Verified 11/17/22 11:00 Review of Systems Review of Systems: All systems reviewed & are unremarkable except as noted in HPI and below PMFSH Past Medical History Medical History (Updated 12/14/23 @ 15:36 by aFra Holt III, DO) No pertinent past medical history Surgical History Surgical History (Updated 11/17/22 @ 10:55 by Faith Lakhani) History of shoulder surgery History of surgery on lower extremity S/P cholecystectomy s/p lap brock 11/05/22 Social History Social History Smoking status: Never smoker Tobacco type: smokeless tobacco Smokeless tobacco user: chewing tobacco Additional smoking assessment comments: SINCE LATE TEENS Alcohol intake: current Alcohol use details: ONE BEER RARELY Substance use: never Living arrangements: with family Spiritual care concerns: No Exam Const: General: healthy appearing Nutritional Appearance: well nourished Orientation/consciousness: patient oriented x3 Limitations: no limitations Eyes: Pupils: Equal, round and reactive pupils present EOM: EOMs intact bilaterally Neck: Neck: normal visual inspection Chest: Chest palpation & inspection: normal inspection of the chest and no tenderness Resp: Effort & Inspection: normal respiratory effort Auscultation: clear to auscultation bilaterally Cardio: Rate: regular rate Rhythm: regular rhythm GI: GI Palp: Yes Soft to palpation and No Tenderness to palpation present (GI) Skin: General skin exam: normal color Wounds: no wounds Neuro: General: patient oriented x3, moves all extremities, no focal motor deficits and CN's II-XI intact bilaterally Speech: normal speech Extrem: General: normal to inspection and no clubbing, cyanosis or edema Psych: Mental Status: mental status grossly normal Affect: normal affect Attitude: cooperative Course Vital Signs Vital signs: Vital Signs Temperature 97.8 F 12/14/23 11:48 Pulse Rate 91 12/14/23 11:48 Respiratory Rate 19 12/14/23 11:48 Blood Pressure 154/88 H 12/14/23 11:48 Pulse Oximetry 97 12/14/23 11:48 Oxygen Delivery Room Air 12/14/23 11:48 Temperature 97.8 F 12/14/23 11:48 Pulse Rate 70 12/14/23 15:45 Respiratory Rate 15 12/14/23 15:45 Blood Pressure 121/79 12/14/23 15:32 Pulse Oximetry 99 12/14/23 15:45 Oxygen Delivery Room Air 12/14/23 13:20 MDM - Chest Pain MDM Narrative Medical decision making narrative: got some relief with toradol. trop neg x 2. likley musculoskelatal. home on nsaids and flexeril. Differential Diagnosis Differential diagnosis: Likely unstable angina pectoris, atypical chest pain, st elevation myocardial infarction, costochondritis and chest pain Lab Data Attestation: I reviewed the patient's lab results. 12/14/23 11:47 12/14/23 11:47 Labs: Lab Results 12/14/23 12/14/23 Range/Units 11:47 14:25 WBC 10.4 H (4.5-10.0) K/mm3 RBC 5.37 (4.6-6.20) M/mm3 Hgb 16.0 (14.0-18.0) g/dL Hct 45.2 (42.0-52.0) % MCV 84.2 (80-100) fl MCH 29.8 (26-34) pg MCHC 35.4 (32-36) g/dl RDW 12.5 (11.5-14.5)
== END 2023-12-14 15:47 | disposition home or self-care (01) ==
PROVIDERS: Emergency Medicine; Emergency Provider Emergency Medicine
DX: R07.89 Other chest pain (principal)
CPT/HCPCS: 36415; 71046; 80053; 83690; 84484; 85025; 85610; 85730; 93005; 96372; 99284; A9270; J1885